=== PATIENT | female | born 1960 | race Caucasian/White ===

== ENCOUNTER 2016-09-12 13:59 | Emergency (ER) | payer BC ==
[~2016-09-12] VITALS: Ht 172.7 cm; Wt 88.0 kg
[~2016-09-12 13:59] MED LIST: ATOR10TA15 PO; BUPR150XL PO; LEVO200T4 PO; LEXA20TA PO; LORA1TAB12 PO; MELO-1 PO; METF500T PO; PROT40TA PO; ULTR50TA5 PO; XARE20TA PO
[2016-09-12 14:01] VITALS: BP 154/74; PULSE 84; RESP 16; TEMP 98; O2SAT 100
--- NOTE | 2016-09-12 14:21 | PD ---
HPI . needs ativan Chief Complaint: Medication Refill Request Time Seen by Provider: 14:21 Travel History International Travel<30 days: No Contact w/Intl Traveler<30days: No Traveled to known affect area: No History of Present Illness HPI 56-year-old female with history of anxiety here requesting a refill on Ativan. Patient tells me that she requested it from her primary care provider, but there has been some issues with the pharmacy obtaining authorization. She tells me that she takes Ativan 3 times a day and she really needs a refill. She is reached out to several urgent cares and they are unable to fill her medication. She says she was told by her insurance company to come to the emergency department. She has no acute issues and only wants a refill. PFSH Past Medical History Hx Anticoagulant Therapy: Yes (xarelto) Cancer: Yes (RIGHT BREAST) Cardiovascular Problems: No Chemotherapy: Yes (2004) Diabetes: Yes Endocrine: Yes Genitourinary: No Hepatitis: No Hiatal Hernia: Yes Immune Disorder: No Musculoskeletal: Yes (S/P NECK TRAUMA, ARTHRITIS) Neurologic: Yes (NEUROPATHY FINGERTIPS/ FEET, RIGHT ARM PAIN) Psychiatric: Yes (ANXIETY) Reproductive: No Respiratory: Yes (SLEEP APNEA/ CPAP) Thyroid Disease: Yes ?: Not Past Surgical History Abdominal Surgery: Yes (LAP. LISBET) AICD: No Joint Replacement: No Oral Surgery: Yes (TONSILLECTOMY) Pacemaker: No Social History Tobacco Use: No Substance Use: No Allergies-Medications (Allergen,Severity, Reaction): Coded Allergies: Morphine (Unverified Allergy, Severe, Nausea/Vomiting, 08/19/16) Latex (Verified Allergy, Mild, 08/19/16) Reported Meds & Prescriptions Reported Meds & Active Scripts Active Lorazepam 1 Mg Tab 1 Mg PO TID PRN Meloxicam 15 Mg Tab 15 Mg PO DAILY PRN Take with food Xarelto (Rivaroxaban) 20 Mg Tab 20 Mg PO DAILY Lexapro (Escitalopram Oxalate) 20 Mg Tab 20 Mg PO DAILY Wellbutrin Xl 24 HR (Bupropion HCl) 150 Mg Tab 150 Mg PO DAILY Ultram (Tramadol HCl) 50 Mg Tab 50 Mg PO Q8H PRN Reported Metformin (Metformin HCl) 500 Mg Tab 500 Mg PO DAILY With a meal Protonix (Pantoprazole Sodium) 40 Mg Tab 40 Mg PO DAILY Levothyroxine (Levothyroxine Sodium) 200 Mcg Tab 200 Mcg PO DAILY Atorvastatin (Atorvastatin Calcium) 10 Mg Tab 10 Mg PO HS Review of Systems General / Constitutional: No: Fever Eyes: No: Visual changes HENT: No: Headaches Cardiovascular: No: Chest Pain or Discomfort Respiratory: No: Shortness of Breath Gastrointestinal: No: Abdominal Pain Genitourinary: No: Dysuria Musculoskeletal: No: Pain Skin: No Rash Neurologic: No: Weakness Psychiatric: No: Depression Endocrine: No: Polydipsia Hematologic/Lymphatic: No: Easy Bruising Physical Exam Narrative GENERAL: AAO x 3, no acute distress, Well-nourished, well-developed patient. SKIN: Warm and dry. No visible rashes or bruising. HEAD: Normocephalic and atraumatic. EYES: No scleral icterus. No injection or drainage. ENT: No nasal drainage noted. Airway patent. NECK: Supple, trachea midline. No JVD. CARDIOVASCULAR: Regular rate and rhythm. RESPIRATORY:No accessory muscle use. GASTROINTESTINAL: Visual inspection normal. EXTREMITIES: No cyanosis or edema. PSYCH: AAO x 3, normal affect. Data Data Last Documented VS Vital Signs Date Time Temp Pulse Resp B/P Pulse Ox O2 Delivery O2 Flow Rate FiO2 09/12/16 14:01 98.0 84 16 154/74 100 MDM Medical Decision Making Medical Screen Exam Complete: Yes Emergency Medical Condition: Yes Medical Record Reviewed: Yes Differential Diagnosis medication refill, anxiety, benzo dependence Narrative Course 56-year-old female with history of anxiety here requesting a refill on Ativan. Patient tells me that she requested it from her primary care provider, but there has been some issues with the pharmacy obtaining authorization. She tells me that she takes Ativan 3 times a day and she really needs a refill. She is reached out to several urgent cares and they are unable to fill her medication. She says she was told by her insurance company to come to the emergency department. She has no acute issues and only wants a refill. I discussed policy with patient. I offered alternative medication such as a short supply of Vistaril, which can often times help with anxiety. Patient did not want to be seen or billed for this visit as I cannot give her any ativan. She reiterates that she does not want a bill for this. At the time of evaluation the presenting medical condition was determined not to be of an emergent nature. The patient was given the option of receiving additional care, but declined. Patient was given options for additional community resources from which to obtain care. The Patient Has Been advised to seek medical attention for their presenting complaint. The patient has been advised to return to the ER at any time if an emergent condition develops. Diagnosis Primary Impression: Encounter for medical screening examination Condition: Stable Elizabeth Pichardo Sep 12, 2016 14:21
[2016-09-28] MEDS ORDERED: METF500T4 PO (11:36)
[2016-10-13] MEDS ORDERED: PROT40TA PO (13:40)
[2016-10-13] MEDS ORDERED: ATOR10TA15 PO (13:40)
[2016-10-13] MEDS ORDERED: LEVO200T4 PO (13:40)
[2016-11-10] MEDS ORDERED: LORA1TAB12 PO (16:20)
[2016-11-13] MEDS ORDERED: test strips (15:28)
== END 2016-09-12 14:41 | disposition left against medical advice (07) ==
LOC: NEPK 13:59
DX: F41.9 Anxiety disorder, unspecified (principal); Z76.0 Encounter for issue of repeat prescription
CPT/HCPCS: 99281